=== PATIENT | female | born 1985 | race Two or more races ===

== ENCOUNTER 2025-02-21 09:33 | Inpatient (IN) | payer MEDICAID, OTHER ==
[2025-02-20 20:10] VITALS: PULSE 98
[~2025-02-21] VITALS: Ht 160 cm; Wt 92.8 kg
[2025-02-21] VITALS (8 sets, daily range): BP systolic 116–131; BP diastolic 76–84; PULSE 75–98; RESP 14–19; TEMP 97–98.4; O2SAT 95–100
[2025-02-21 10:18] LABS: Hemoglobin 11.9 g/dL (12.2-16.2); Nucleated Red Blood Cells % 0.0 %
--- NOTE | 2025-02-21 10:18 | ED.PDOC ---
HPI Comments 39 y.o female with PMHx of PE x 2 (on Eliquis), CO, and valley fever, presents to the ED via EMS for a chief complaint of substernal chest pain associated with SOB. Patient reports pain initially presented 2-3 months ago, had been intermittent but worsened today with new onset of dyspnea. Patient reports pain has been constant today, sharp, and rating a 7/10 on the pain scale with no alleviating factors. She denies any fever, chills, nausea, vomiting, or abdominal pain. Chief Complaint: Chest Pain Time Seen by MD: 09:40 Reviewed Notes: Nurses Notes, Director Of Search Engine Marketing Notes, Medications, Allergies Allergies: Coded Allergies: NO KNOWN ALLERGIES (Unverified , 02/21/25) Information Source: Patient, Emergency Med Personnel Mode of Arrival: EMS Severity: Moderate Timing: Months Duration: Intermittent Prehospital treatment: 12 Lead EKG, ASA, Emergency Medicine Physician Assistant Location: Substernal Radiation: No Radiation Quality: Sharp Onset: At Rest Cardiac Risk Factors: Other PE Risk Factors: None History of: Similar pain in past, CO Modifying Factors: Nothing Associated Signs and Symptoms: SOB Past Medical History PAST MEDICAL HISTORY: CO, PE (2) Past Medical History (Other): Valley fever Surgical History: Cholecystectomy 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: No Pertinent 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 Family History Family History: Reviewed,noncontributory to illness Social History Smoker: Non-Smoker Alcohol: Denies ETOH Use Drugs: Denies Drug Use Lives In: Home Constitutional: denies: chills, diaphoresis, fatigue, fever, malaise, sweats, weakness, others EENTM: denies: blurred vision, double vision, ear bleeding, ear discharge, ear drainage, ear pain, ear ringing, eye pain, eye redness, hearing loss, mouth pain, mouth swelling, nasal discharge, nose bleeding, nose congestion, nose pain, photophobia, tearing, throat pain, throat swelling, voice changes, others Respiratory: reports: shortness of breath, SOB with excertion; denies: cough, hemoptysis, orthopnea, SOB at rest, stridor, wheezing, others Cardiovascular: reports: chest pain, Dyspnea on exertion; denies: dizzy spells, diaphoresis, edema, irregular heart beat, left arm pain, lightheadedness, palpitations, PND, syncope, others Gastrointestinal: denies: abdomen distended, abdominal pain, blood streaked bowels, constipated, diarrhea, dysphagia, difficulty swallowing, hematemesis, melena, nausea, poor appetite, poor fluid intake, rectal bleeding, rectal pain, vomiting, others Genitourinary: denies: abnormal vagina bleeding, burning, dyspareunia, dysuria, flank pain, frequency, hematuria, incontinence, pain, , vagina discharge, urgency, others Neurological: denies: dizziness, fainting, headache, left sided numbness, left sided weakness, numbness, paresthesia, pre-existing deficit, right sided numbness, right sided weakness, seizure, speech problems, tingling, tremors, weakness, others Musculoskeletal: denies: back pain, gout, joint pain, joint swelling, muscle pain, muscle stiffness, neck pain, others Integumetry: denies: bruises, change in color, change in hair/nails, dryness, laceration, lesions, lumps, rash, wounds, others Allergic/Immunocompromised: denies: Difficulty Healing, Frequent Infections, Hives, Itching, others Hematologic/Lymphatic: denies: anemia, blood clots, easy bleeding, easy bruising, swollen glands, others Endocrine: denies: excessive hunger, excessive sweating, excessive thirst, excessive urination, flushing, intolerance to cold, intolerance to heat, unexplained weight gain, unexplained weight loss, others Psychiatric: denies: anxiety, bipolar disorder, depression, hopeless, panic disorder, schizophrenia, sleepless, suicidal, others All Other Systems: Reviewed and Negative Physical Exam General Appearance: Moderate Distress HEENT: Normal ENT Inspection, Pharynx Normal, TMs Normal Neck: Full Range of Motion, Non-Tender, Normal, Normal Inspection Respiratory: Chest Non-Tender, Lungs Clear, No Accessory Muscle Use, No Respiratory Distress, Normal Breath Sounds Cardiovascular: No Edema, No JVD, No Murmur, No Gallop, Normal Peripheral Pulses, Regular Rate/Rhythm Breast Exam: Deferred Gastrointestinal: No Organomegaly, Non Tender, No Pulsatile Mass, Normal Bowel Sounds, Soft Genitalia: Deferred Pelvic: Deferred Rectal: Deferred Extremities: No calf tenderness, Normal capillary refill, Normal inspection, Normal range of motion, Non-tender, No pedal edema Musculoskeletal : Apperance: Normal Neurologic: Alert, health care specialist II-XII nml as Tested, No Motor Deficits, Normal Affect, Normal Mood, No Sensory Deficits Cerebellar Function: NOT DONE Reflexes: NOT DONE Skin: Dry, Normal Color, Warm Peripheral Pulses: 3+ Radial (R), 3+ Radial (L) Lymphatic: No Adenopathy EKG EKG : Pulse Rate (adult): 92 Cardiac Rhythm: NSR Was a procedure done? Was a procedure done?: No CP Differential Dx Differential Diagnosis: A-fib, A-Flutter, Angina, Anxiety / Panic Attack, Atrial Dysrhythmia, Electrolyte Disorder, N/A Differential Diagnosis: Angina, Chest Wall Pain, Cholelithiasis, Costochondritis, Myocardial Infarction, Pericarditis X-Ray, Labs, Meds, VS Vital Signs Date Time Temp Pulse Resp B/P (MAP) Pulse Ox O2 Delivery O2 Flow Rate FiO2 02/21/25 10:31 87 02/21/25 10:18 92 02/21/25 09:40 98.1 99 18 127/86 100 98.1 02/21/25 09:36 92 Lab Test 02/21/25 10:59 02/21/25 10:39 02/21/25 09:50 Range/Units Troponin I High Sensitivity Pending 12 </=34 ng/L Urine Color Yellow Yellow Urine Clarity Turbid H Clear Urine pH 6.5 5.0-9.0 Urine Specific [place] 1.024 1.001-1.035 Urine Protein Trace H Negative Urine Ketones Trace Negative Urine Blood Negative Negative /uL Urine Nitrite Negative Negative Urine Bilirubin Negative Negative Urine Urobilinogen 2 H Negative mg/dL Urine Leukocyte Esterase Negative Negative /uL Urine RBC 6 0 - 4 /hpf Urine Microscopic WBC 14 H 0-5 /HPF Urine Squamous Epithelial Cells Mod <5 /hpf Urine Bacteria None seen None Seen /hpf Urine Mucus Few None Seen Urine Glucose Normal Normal mg/dL White Blood Count 10.1 4.4-10.8 10^3/uL Red Blood Count 5.97 H 4.0-5.20 10^6/uL Hemoglobin 11.9 L 12.2-16.2 g/dL Hematocrit 38.0 36.0-46.0 % Mean Corpuscular Volume 63.6 L 80.0-100.0 fL Mean Corpuscular Hemoglobin 19.9 L 28.0-32.0 pg Mean Corpuscular Hemoglobin Concent 31.4 L 32.0-36.0 g/dL Red Cell Distribution Width 18.4 H 11.8-14.3 % Platelet Count 361 140-450 10^3/uL Mean Platelet Volume 8.5 6.9-10.8 fL Neutrophils (%) (Auto) 82.3 H 37.0-80.0 % Lymphocytes (%) (Auto) 13.4 10.0-50.0 % Monocytes (%) (Auto) 3.5 0.0-12.0 % Eosinophils (%) (Auto) 0.4 0.0-7.0 % Basophils (%) (Auto) 0.4 0.0-2.0 % Neutrophils # (Auto) 8.3 1.6-8.6 10 ^3/uL Lymphocytes # (Auto) 1.4 0.4-5.4 10 ^3/uL Monocytes # (Auto) 0.4 0-1.3 10 ^3/uL Eosinophils # (Auto) 0 0-0.8 10 ^3/uL Basophils # (Auto) 0 0-0.2 10 ^3/uL Nucleated Red Blood Cells 0.0 % D-Dimer, Quantitative 3.42 H 0.0-0.49 mg/L FEU Sodium Level 140 136-145 mmol/L Potassium Level 3.3 L 3.5-5.1 mmol/L Chloride Level 105 98-107 mmol/L Carbon Dioxide Level 23 20-31 mmol/L Anion Gap 12 5-15 Blood Urea Nitrogen 16 9-23 mg/dL Creatinine 1.18 H 0.550-1.02 mg/dL Glomerular Filtration Rate Calc 60 >90 mL/min BUN/Creatinine Ratio 13.6 10.0-20.0 Serum Glucose 95 74-106 mg/dL Calcium Level 10.1 8.7-10.4 mg/dL Patient alert. Came in because of chest pain. History of PE. She is on Eliquis. WBC within normal limits. D-dimer elevated. Potassium is low. Was given potassium. EKG reviewed does not show any acute changes. Explained to the patient. Continue to monitor. Time of 1ST Reevaluation: 10:14 Reevaluation 1ST: Unchanged Patient Education/Counseling: Diagnosis, Treatment, Prognosis Family Education/Counseling: No Family Present SEPSIS Sepsis Screen Date sepsis recognized/suspect: Feb 21, 2025 Time Sepsis recognized/suspect: 945 Recent Procedure: No On Antibiotic Therapy: No Respiratory Rate >20: No Heart Rate >90: No Temp<36 C (96.8 F) or >38.3 C: No SBP <90 or MAP <65 mmHG: No New Acute Mental Status Change: No Is the patient on CPAP, BIPAP,: No Physician Orders Electrocardigram (02/21/25 10:39) Electrocardigram (02/21/25 12:39) Troponin-I Hs (02/21/25 10:39) Troponin-I Hs (02/21/25 12:39) Chest Portable (02/21/25 09:58) Vital Signs Date Time Temp Pulse Resp B/P (MAP) Pulse Ox O2 Delivery O2 Flow Rate FiO2 02/21/25 10:31 87 02/21/25 10:18 92 02/21/25 09:40 98.1 99 18 127/86 100 98.1 02/21/25 09:36 92 Laboratory Tests Test 02/21/25 09:50 White Blood Count 10.1 10^3/uL (4.4-10.8) Departure 1 Departure Time of Disposition: 11:17 Impression: Primary Impression: Chest pain of unknown etiology Disposition: ADMITTED INPATIENT Admit to: Med Surg Condition: Guarded Critical Care Note Critical Care Time?: Yes (90 min-critical care time only) Stability Stability form required: No Heart Score Heart Score: Heart Score Response (Comments) Value History Moderate Suspicious 1 EKG Normal 0 Age <45 0 Risk Factors >3 or Hx ASHD 2 Troponin Normal limit 0 Total 3 I personally scribed for ROBBI GILLETTE MD ([email or web address]) on 02/21/25 at 10:18. Electronically submitted by Rachna Purcell ([facility]). ROBBI GILLETTE MD Feb 21, 2025 10:18
[2025-02-21 10:20] LABS: Hematocrit 38.0 % (36.0-46.0); Mean Corpuscular Hemoglobin 19.9 pg (28.0-32.0); Mean Corpuscular Volume 63.6 fL (80.0-100.0)
--- NOTE | 2025-02-21 10:26 | ECG ---
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
[2025-02-21 10:28] LABS: Chloride 105 mmol/L (98-107); Sodium 140 mmol/L (136-145)
[2025-02-21 10:29] LABS: Anion Gap 12 (5-15); Calcium 10.1 mg/dL (8.7-10.4); Carbon Dioxide 23 mmol/L (20-31); Potassium 3.3 mmol/L (3.5-5.1)
[2025-02-21 10:34] LABS: BUN/Creatinine Ratio 13.6 (10.0-20.0); Blood Urea Nitrogen 16 mg/dL (9-23); Glucose 95 mg/dL (74-106)
--- NOTE | 2025-02-21 10:41 | DVH ---
CHEST RADIOGRAPH Indication: sob Technique: Single frontal view of the chest was obtained COMPARISON: None FINDINGS: Lines and Tubes: None Lungs: Clear Pleura: No effusion. No pneumothorax. Cardiomediastinal contours: Unremarkable Bones: Unremarkable IMPRESSION: No acute disease.
[2025-02-21 10:50] LABS: Urine Protein, UAD TRACE (Negative)
--- NOTE | 2025-02-21 13:04 | DVHHP2 ---
History of Present Illness Reason for Visit: Chest pain with shortness of breath History of Present Illness Isadora Wagner is a 39-year-old female with past medical history of PE on Eliquis, CA, valley fever, and cholecystectomy who presents to the ED with chest pain and shortness of breath. Patient reports that the pain initially started 2-3 months ago and has been intermittent but now worsened today. Patient reports that the pain is 8/10 stabbing like and intermittent. Patient also reports that the pain is relieved with aspirin. Patient also reports that she has been noncompliant with her Eliquis. She reported that she does not want to take medications for the rest of her life. She also reports that she had valley fever for the entire year and was treated at [facility]. Patient also endorsed that she has a pulmonary referral but she never went to see a licensed massage practitioner or her primary. Patient also endorses that she smokes 1 pack of cigarettes per day and quit using fentanyl and methamphetamine, is now on Suboxone. Patient also reports that she was prescribed Lasix, Eliquis, albuterol, and Symbicort. Patient denies any recent trauma or injury, recent sick contacts, recent travels, recent ingestion of spoiled food, fever, chills, lightheadedness, weakness, dizziness, abdominal pain nausea, vomiting, diarrhea, or urinary symptoms. Cardiovascular: CA Pulmonary: Pulmonary embolus Past Medical History Valley fever Past Surgical History: Cholecystectomy Family History: Cancer, DM, Other (Mom with diabetes, breast cancer, and ovarian cancer. Dad with heart disease. Brother from CHF.) Smoke: 1 pack per day ALCOHOL: none Drugs: Other Lives: with Family Domestic Violence: Neg Review of Systems Respiratory: Shortness of breath Cardiovascular: Chest Pain Allergies: Coded Allergies: NO KNOWN ALLERGIES (Unverified , 02/21/25) Exam Vital Signs Vital Signs Date Time Temp Pulse Resp B/P (MAP) Pulse Ox O2 Delivery O2 Flow Rate FiO2 02/21/25 11:21 98.8 104 18 148/96 (113) 99 98.8 General Appearance: Alert, Oriented X3, Cooperative, No acute distress HEENT: Atraumatic, PERRLA, EOMI, Mucous membr. moist/pink Respiratory: Clear to auscultation, Normal air movement Cardiovascular: Regular rate, Normal S1, Normal S2, No murmurs Abdominal: Normal bowel sounds, Soft Extremities: Normal pulses Neuro: Normal gait, Normal speech, Strength at 5/5 X4 ext, Normal tone, Sensation intact Psych/Mental Status: Mental status NL, Mood NL Labs/Xrays Labs Test 02/21/25 10:59 02/21/25 10:39 02/21/25 09:50 Range/Units Troponin I High Sensitivity 15 </=34 ng/L Urine Color Yellow Yellow Urine Clarity Turbid H Clear Urine pH 6.5 5.0-9.0 Urine Specific [place] 1.024 1.001-1.035 Urine Protein Trace H Negative Urine Ketones Trace Negative Urine Blood Negative Negative /uL Urine Nitrite Negative Negative Urine Bilirubin Negative Negative Urine Urobilinogen 2 H Negative mg/dL Urine Leukocyte Esterase Negative Negative /uL Urine RBC 6 0 - 4 /hpf Urine Microscopic WBC 14 H 0-5 /HPF Urine Squamous Epithelial Cells Mod <5 /hpf Urine Bacteria None seen None Seen /hpf Urine Mucus Few None Seen Urine Glucose Normal Normal mg/dL White Blood Count 10.1 4.4-10.8 10^3/uL Red Blood Count 5.97 H 4.0-5.20 10^6/uL Hemoglobin 11.9 L 12.2-16.2 g/dL Hematocrit 38.0 36.0-46.0 % Mean Corpuscular Volume 63.6 L 80.0-100.0 fL Mean Corpuscular Hemoglobin 19.9 L 28.0-32.0 pg Mean Corpuscular Hemoglobin Concent 31.4 L 32.0-36.0 g/dL Red Cell Distribution Width 18.4 H 11.8-14.3 % Platelet Count 361 140-450 10^3/uL Mean Platelet Volume 8.5 6.9-10.8 fL Neutrophils (%) (Auto) 82.3 H 37.0-80.0 % Lymphocytes (%) (Auto) 13.4 10.0-50.0 % Monocytes (%) (Auto) 3.5 0.0-12.0 % Eosinophils (%) (Auto) 0.4 0.0-7.0 % Basophils (%) (Auto) 0.4 0.0-2.0 % Neutrophils # (Auto) 8.3 1.6-8.6 10 ^3/uL Lymphocytes # (Auto) 1.4 0.4-5.4 10 ^3/uL Monocytes # (Auto) 0.4 0-1.3 10 ^3/uL Eosinophils # (Auto) 0 0-0.8 10 ^3/uL Basophils # (Auto) 0 0-0.2 10 ^3/uL Nucleated Red Blood Cells 0.0 % D-Dimer, Quantitative 3.42 H 0.0-0.49 mg/L FEU Sodium Level 140 136-145 mmol/L Potassium Level 3.3 L 3.5-5.1 mmol/L Chloride Level 105 98-107 mmol/L Carbon Dioxide Level 23 20-31 mmol/L Anion Gap 12 5-15 Blood Urea Nitrogen 16 9-23 mg/dL Creatinine 1.18 H 0.550-1.02 mg/dL Glomerular Filtration Rate Calc 60 >90 mL/min BUN/Creatinine Ratio 13.6 10.0-20.0 Serum Glucose 95 74-106 mg/dL Calcium Level 10.1 8.7-10.4 mg/dL CHEST RADIOGRAPH Indication: sob Technique: Single frontal view of the chest was obtained COMPARISON: None FINDINGS: Lines and Tubes: None Lungs: Clear Pleura: No effusion. No pneumothorax. Cardiomediastinal contours: Unremarkable Bones: Unremarkable IMPRESSION: No acute disease. SEPSIS Sepsis Screen Date sepsis recognized/suspect: Feb 21, 2025 Time Sepsis recognized/suspect: 945 Recent Procedure: No On Antibiotic Therapy: No Respiratory Rate >20: No Heart Rate >90: No Temp<36 C (96.8 F) or >38.3 C: No SBP <90 or MAP <65 mmHG: No New Acute Mental Status Change: No Is the patient on CPAP, BIPAP,: No Physician Orders Electrocardigram (02/21/25 10:39) Electrocardigram (02/21/25 12:39) Troponin-I Hs (02/21/25 12:39) Chest Portable (02/21/25 09:58) Ct Angio Chest Contrast (02/21/25 11:17) Cardiac Diet-2gna,Lofat,Lochol (02/21/25 Lunch) Vital Signs Date Time Temp Pulse Resp B/P (MAP) Pulse Ox O2 Delivery O2 Flow Rate FiO2 02/21/25 11:21 98.8 104 18 148/96 (113) 99 98.8 02/21/25 10:31 87 02/21/25 10:18 92 02/21/25 09:40 98.1 99 18 127/86 100 98.1 02/21/25 09:36 92 Laboratory Tests Test 02/21/25 09:50 White Blood Count 10.1 10^3/uL (4.4-10.8) Medications Medications Dose Ordered Sig/[place] Route Start Time Stop Time Status Last Admin Dose Admin Aspirin 325 mg ONCE ONCE PO 02/21/25 11:30 02/21/25 11:31 DC 02/21/25 12:20 325 MG Assessment/Plan Assessment/Plan Assessment Chest pain Elevated D-dimer rule out PE Hypokalemia Tobacco use Meth use Fentanyl use Microcytic anemia RADHA likely prerenal History of PE on Eliquis History of CA History of valley fever History of cholecystectomy Medication noncompliance Plan Admit to tele Antiemetics Pain management Replete lytes Aspirin + statin CTA chest ordered by ED UA UDS ACS workup D-dimer noted Chest x-ray noted Troponin noted negative x2 Duo nebs Diuretics BNP Budesonide EKG Diet Home medications reconciled RN to reconcile other medications DVT prophylaxis-therapeutic Lovenox PUD prophylaxis-not indicated no history of GERD or GI bleed Discussed plan of care with patient and nurse Counseled patient on medication adherence Counseled patient on cessation of polysubstance use and tobacco use [id number] Behavior change smoking greater than 10 minutes about use of other options also gave option of nicotine patch [id number] Preventive counseling healthy eating habits, physical activity, and regular checkups Plan discussed with: Patient Date of Service: Feb 21, 2025 Billing Provider: MILTON CAMACHO Common Visit Codes: [id number] INP/OBS CARE (HIGH) Secondary Visit Codes: [id number] COUNSELING IND, [id number] CHNG SMOKING >10MIN MILTON CAMACHO Feb 21, 2025 13:04
--- NOTE | 2025-02-21 13:36 | ECG ---
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
--- NOTE | 2025-02-21 13:36 | ECG ---
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
[2025-02-21] MEDS: POTASSIUM CHL 20 Meq TABLET PO ONE (13:58)
[2025-02-21] MEDS ORDERED: ONDANSETRON HCL 4 MG/2 ML VIAL IV PRN (14:30)
[2025-02-21] MEDS ORDERED: ACETAMINOPHEN 325 MG TAB PO PRN (14:30)
[2025-02-21] MEDS ORDERED: NITROGLYCERIN 0.4 MG SL TAB SL PRN ×2 (14:30)
[2025-02-21] MEDS ORDERED: MORPHINE SULFATE 4 MG/ML SYR/VIAL IV PRN (14:30)
[2025-02-21] MEDS ORDERED: MORPHINE SULFATE INJ 2 MG/ml SYRG IV PRN (14:30)
[2025-02-21] MEDS ORDERED: IOHEXOL 350 MG/ML 100ML IJ ONE (16:15)
--- NOTE | 2025-02-21 17:05 | DVH ---
Indication: pe Technique: CT axial images of the abdomen and pelvis are obtained with intravenous contrast. Coronal and sagittal reformats were obtained. Radiation Dose Information: CTDI volume is 17.76 mGy. Dose-length product is 487 mGy*cm Comparison: None FINDINGS: No large defect within the main left right pulmonary arteries. Segmental and subsegmental branches doll boptimally opacified, no large defects identified. The trachea is patent. No pneumothorax. No pulmonary airspace consolidation. No pleural effusion. Heart normal in size. No supraclavicular or axillary lymphadenopathy. Moderate size hiatal hernia. Right hepatic cystic lesion measuring 3.4 cm. No aggressive osseous process postsurgical changes of the right shoulder/glenoid. [id number] th oracic degenerative disc disease. IMPRESSION: No evidence for large pulmonary embolism. Moderate size hiatal hernia. Right hepatic lobe cystic lesion measuring 3.4 cm. Recommend abdominal ultrasound to further charact erize to exclude any complex cystic lesion/mass Other findings as described.
[2025-02-21 19:12] LABS: Opiate Scree,Urine Neg (NEGATIVE)
[2025-02-21 19:13] LABS: Cannabinoid Screen, Urine Neg (NEGATIVE)
[2025-02-21 19:21] LABS: Amphetamine Screen, Urine Pos (NEGATIVE); Barbiturate Scree,Urine Neg (NEGATIVE); Benzodiazephine Screen, Urine Neg (NEGATIVE); Phencyclidine Screen, Urine Neg (NEGATIVE)
--- NOTE | 2025-02-21 19:44 | DVH ---
ULTRASOUND ABDOMEN, LIMITED RIGHT UPPER QUADRANT: REASON FOR EXAM: Liver lesion seen on CT TECHNIQUE: Real-time sector scans in the transverse and longitudinal planes were obtained through th e right upper quadrant of the abdomen. FINDINGS: The liver is borderline enlarged at 17.3 cm in length. There is coarsened liver echotextu re. There is hepatopetal flow in the portal vein. There is a clover shaped simple anechoic cyst in th e posterior right lobe of the liver measuring 3.8 x 3.1 x 3.2 cm. There is no intrahepatic nor extra hepatic biliary ductal dilatation. The common bile duct measures 6 mm. The gallbladder is absent. The pancreas is obscured by bowel gas. The right kidney measures 10.8 cm. No hydronephrosis or nephrolithiasis is identified. There is no evidence of right renal mass or cyst. The visualized portions of the abdominal aorta demonstrate no evidence of aneurysmal dilatation. The visualized inferior vena cava is unremarkable. There is no free fluid identified in the right upper quadrant. IMPRESSION: [place] shaped simple cyst in the posterior right lobe of the liver.
[2025-02-21 19:46] LABS: Cocaine Screen, Urine Neg (NEGATIVE)
[2025-02-21] MEDS: ATORVASTATIN 20 MG TAB PO SCH (21:34)
[2025-02-21] MEDS ORDERED: ENOXAPARIN SOD 100 MG/1 ML SYRINGE SC SCH (22:00)
[2025-02-21] MEDS: BUDESONIDE (INHALATION) 0.5 MG/2 ML NEB NEB SCH (22:11)
[2025-02-22] VITALS (14 sets, daily range): BP systolic 110–143; BP diastolic 74–99; PULSE 65–83; RESP 16–19; TEMP 96.8–98.2; O2SAT 91–100
[2025-02-22 06:30] LABS: Nucleated Red Blood Cells % 0.0 %
[2025-02-22 06:32] LABS: Hematocrit 33.1 % (36.0-46.0); Hemoglobin 10.3 g/dL (12.2-16.2); Mean Corpuscular Hemoglobin 19.7 pg (28.0-32.0); Mean Corpuscular Volume 63.5 fL (80.0-100.0)
[2025-02-22 06:40] LABS: Anion Gap 11 (5-15); Carbon Dioxide 24 mmol/L (20-31); Chloride 101 mmol/L (98-107); Potassium 4.1 mmol/L (3.5-5.1); Sodium 136 mmol/L (136-145)
[2025-02-22 06:41] LABS: Calcium 9.3 mg/dL (8.7-10.4)
[2025-02-22 06:46] LABS: BUN/Creatinine Ratio 22.5 (10.0-20.0); Blood Urea Nitrogen 18 mg/dL (9-23); Glucose 100 mg/dL (74-106); Triglycerides 71 mg/dL (< 150)
[2025-02-22 06:47] LABS: Magnesium 1.9 mg/dL (1.6-2.6)
[2025-02-22 06:48] LABS: Cholesterol 138 mg/dL (< 200); HDL Cholesterol 57 mg/dL (40-59)
[2025-02-22] MEDS: ENOXAPARIN SOD 40 MG/0.4 ML SYRINGE SC SCH (10:16)
[2025-02-22] MEDS: FUROSEMIDE 40 MG/4 ML VIAL IV SCH (10:17)
--- NOTE | 2025-02-22 17:56 | DVHPN2 ---
Subjective BETTER Reviewed: Care Plan, H&P, Labs, Medications, Previous Orders, Radiology Changes from previous H/P or p: No Changes Objective Vitals Vital Signs Date Time Temp Pulse Resp B/P (MAP) Pulse Ox O2 Delivery O2 Flow Rate FiO2 02/22/25 17:00 98.2 69 18 143/99 (114) 93 98.2 02/22/25 10:38 Room Air* 0 21 Intake/Output Intake and Output 02/22/25 07:00 Intake Total 1100 ml Balance 1100 ml Intake Oral 1100 ml # Voids 6 General Appearance: Alert, Oriented X3, Cooperative, No acute distress HEENT: Atraumatic Lungs: Clear to auscultation Cardiovascular: Regular rate Abdomen: Normal bowel sounds, Soft, No tenderness Extremities: No edema Medications Current Medications Medications Dose Ordered Sig/[place] Route Start Time Stop Time Status Last Admin Dose Admin Aspirin 81 mg DAILY PO 02/22/25 10:00 02/22/25 10:17 81 MG Atorvastatin Calcium 40 mg HS PO 02/21/25 22:00 02/21/25 21:34 40 MG Acetaminophen 650 mg Q6HP PRN PO 02/21/25 14:30 Ondansetron HCl 4 mg Q4HP PRN IV 02/21/25 14:30 Nitroglycerin 0.4 mg Q5MINP PRN SL 02/21/25 14:30 Morphine Sulfate 2 mg Q30M PRN IV 02/21/25 14:30 Furosemide 40 mg DAILY IV 02/22/25 10:00 02/22/25 10:17 40 MG Albuterol 2.5 mg Q4HPRN PRN NEB 02/21/25 15:00 Ipratropium [place] 0.5 mg Q4HPRN PRN NEB 02/21/25 15:00 Budesonide 0.5 mg BID NEB 02/21/25 22:00 02/22/25 10:33 0.5 MG Enoxaparin Sodium 40 mg DAILY SC 02/22/25 10:00 02/22/25 10:16 40 MG Ceftriaxone Sodium 50 ml @ 100 mls/hr DAILY@09 IV 02/23/25 09:00 Laboratory Results Laboratory Tests 02/22/25 05:39 Chemistry Test 02/22/25 05:39 Calcium Level 9.3 mg/dL (8.7-10.4) Magnesium Level 1.9 mg/dL (1.6-2.6) Lipid panel Test 02/22/25 05:39 Cholesterol Level 138 mg/dL (< 200) HDL Cholesterol 57 mg/dL (40-59) Triglycerides Level 71 mg/dL (< 150) Urinalysis Test 02/21/25 10:39 Urine Color Yellow (Yellow) Urine Clarity Turbid (Clear) H Urine pH 6.5 (5.0-9.0) Urine Specific [place] 1.024 (1.001-1.035) Urine Protein Trace (Negative) H Urine Ketones Trace (Negative) Urine Blood Negative /uL (Negative) Urine Nitrite Negative (Negative) Urine Bilirubin Negative (Negative) Urine Urobilinogen 2 mg/dL (Negative) H Urine Leukocyte Esterase Negative /uL (Negative) Urine RBC 6 /hpf (0 - 4) Urine Microscopic WBC 14 /HPF (0-5) H Urine Squamous Epithelial Cells Mod /hpf (<5) Urine Bacteria None seen /hpf (None Seen) Urine Mucus Few (None Seen) Urine Glucose Normal mg/dL (Normal) Assessment/Plan Assessment/Plan Chest pain History of PE History of valley fever UTI Anemia Hiatal hernia Methamphetamine use Fentanyl use Liver cysts Plan: Antibiotic for UTI. Urine culture. Chest CT negative for PE. Cardiology consultation. Further plan per orders Plan discussed with: Patient My Orders Orders - CORRIE RAZA MD Procedure Category Date Status Time Urine Bacterial LARISSA 02/22/25 In Process Culture 12:09 Ceftriaxone 1gm/50ml PHA 02/23/25 In Process (Rocephin) 09:00 Date of Service: Feb 22, 2025 Billing Provider: CORRIE RAZA MD Common Visit Codes: [id number] INP/OBS CARE(HIGH) CORRIE RAZA MD Feb 22, 2025 17:55
[2025-02-22] MEDS: ALBUTEROL SULF 2.5 MG/0.5ML(0.5%) NEB SOLN NEB PRN (18:15)
[2025-02-22] MEDS: IPRATROPIUM BROM 0.5 MG/2.5ML INH SOL NEB PRN (18:15)
[2025-02-23] VITALS (11 sets, daily range): BP systolic 105–117; BP diastolic 57–75; PULSE 59–89; RESP 16–19; TEMP 98–98.2; O2SAT 95–100
--- NOTE | 2025-02-23 09:43 | DVHSR ---
APPROVED REPORT EXAM: Two-dimensional and M-mode echocardiogram with Doppler and color Doppler. Blood Pressure: 122/78 mmHg INDICATION Chest Pain RISK FACTORS Height: 5' 3", Weight: 189 DIMENSIONS LVDd4.8 (3.8-5.7cm)LA (2D)3.7 (1.9-4.0cm)Aortic Root3.2 (2.0-3.7cm) LVDs3.3 (2.5-4.0cm)LA (MM) (1.9-4.0cm)Aortic Cusp Exc1.5 (1.5-2.0cm) EF (%) 58.0 (55-70%)Rt. Atrium4.1 (1.9-4.0cm)Asc. Aorta cm IVSd0.9 (0.7-1.1cm)RV (D) (1.8-2.4cm) PWd1.0 (0.7-1.1cm) Mitral Valve MitralMitral Stenosis E wave0.60m/sMV Mean GR.mmHg A wave0.70m/sMV Peak GR.mmHg E/A ratio0.92D MVAcm2 Aortic Valve Aortic ValveAortic Stenosis V10.80m/Judi Mean GR.3mmHg V21.10m/Judi Peak GR.6mmHg LVOT Diameter2.1 (1.8-2.4cm)Doppler AVA2.52cm2 Pulmonic Valve V20.70m/s Tricuspid Valve TR Velocity2.40m/s [id number] Conclusion lvef 55% borderline lvh normal rv function but enlarged borderline no severe valve abnormalities noted
--- NOTE | 2025-02-23 09:51 | DVHINCON2 ---
SUYAPA JACOBSON [facility] 02/23/25 0951: Date Seen: Feb 23, [address] Riley Reason for Consultation Chest pain History of Present Illness A 39-year-old female with a history of pulmonary embolism on Eliquis, asthma, and amphetamine/fentanyl abuse presents to the ED with complaint of intermittent chest pain and shortness of breath. She reports that chest pain sharp in nature began a few days ago, typically occurring with exertion such as walking, and is associated with dyspnea on exertion. She denies syncope, diaphoresis, p alpitations, or other acute symptoms. In the ED, a 12 lead EKG revealed normal sinus rhythm without acute ischemic changes, and serial troponins were negative. Past Medical History As stated in HPI Past Surgical History Cholecystectomy Family History: Cardiovascular disease G8 FATHER Depression G8 MOTHER FH: CAD (coronary artery disease) G8 FATHER FH: breast cancer G8 MOTHER FH: ovarian cancer G8 MOTHER FH: schizophrenia G8 FATHER Hypoglycemia G8 MOTHER Family History Reviewed, non-contributory to the management of this case. Social History As stated in HPI Allergies: Coded Allergies: NO KNOWN ALLERGIES (Unverified , 02/21/25) Current Medications Current Medications Medications (Trade) Dose Ordered Sig/Eugene Route PRN Reason Start Time Stop Time Status Last Admin Aspirin 81 mg DAILY PO 02/22/25 10:00 02/23/25 09:14 Furosemide (Lasix Injection) 40 mg DAILY IV 02/22/25 10:00 02/22/25 10:17 Enoxaparin Sodium (Lovenox) 40 mg DAILY SC 02/22/25 10:00 02/23/25 09:14 Ceftriaxone Sodium 50 ml @ 100 mls/hr DAILY@09 IV 02/23/25 09:00 02/23/25 09:14 Review of Systems Constitutional: No symptom reported Ears, Nose, & Throat: No symptom reported Eyes: No symptom reported Neurological: No symptoms reported Pulmonary/Respiratory: No symptom reported Cardiovascular: Chest pain Gastrointestinal: No symptom reported Genitourinary: No symptom reported Musculoskeletal: No symptom reported Skin: No symptom reported Psychiatric: No symptom reported Endocrine: No symptom reported Hemotologic/Lymphatic: No symptom reported Vital Signs Vital Signs Date Time Temp Pulse Resp B/P (MAP) Pulse Ox O2 Delivery O2 Flow Rate FiO2 02/23/25 09:00 98.1 78 16 105/57 (73) 95 98.1 02/22/25 20:00 Room Air* 0 21 Physical Exam INITIAL VITAL SIGNS: Reviewed by me GENERAL: Alert and interactive. No acute distress. HEAD: Head is normocephalic and atraumatic. EYES: EOMI, PERRL. No scleral icterus. No conjunctival injection. ENT: Moist mucous membranes. NECK: Supple, No masses, Full range of motion. RESPIRATORY: No tachypnea. Clear breath sounds bilaterally. No wheezing, rales, rhonchi. CV: Regular rate and rhythm. Dyspnea on exertion. No edema. GI/: Active bowel sounds, soft, nondistended, nontender. No guarding. No rebound. No masses. No CVA tenderness. INTEGUMENTARY: Warm and dry. No obvious rashes. NEUROLOGIC: Alert and oriented. Face is symmetric. Speech is normal. Moves all extremities equally. Labs/Diagnostic Data Labs Test 02/22/25 05:39 02/21/25 10:39 02/21/25 09:50 Range/Units White Blood Count 7.6 4.4-10.8 10^3/uL Red Blood Count 5.21 H 4.0-5.20 10^6/uL Hemoglobin 10.3 L 12.2-16.2 g/dL Hematocrit 33.1 #L 36.0-46.0 % Mean Corpuscular Volume 63.5 L 80.0-100.0 fL Mean Corpuscular Hemoglobin 19.7 L 28.0-32.0 pg Mean Corpuscular Hemoglobin Concent 31.0 L 32.0-36.0 g/dL Red Cell Distribution Width 18.4 H 11.8-14.3 % Platelet Count 265 140-450 10^3/uL Mean Platelet Volume 8.5 6.9-10.8 fL Neutrophils (%) (Auto) 61.0 37.0-80.0 % Lymphocytes (%) (Auto) 26.3 10.0-50.0 % Monocytes (%) (Auto) 7.1 0.0-12.0 % Eosinophils (%) (Auto) 4.9 0.0-7.0 % Basophils (%) (Auto) 0.7 0.0-2.0 % Neutrophils # (Auto) 4.6 1.6-8.6 10 ^3/uL Lymphocytes # (Auto) 2.0 0.4-5.4 10 ^3/uL Monocytes # (Auto) 0.5 0-1.3 10 ^3/uL Eosinophils # (Auto) 0.4 0-0.8 10 ^3/uL Basophils # (Auto) 0.1 0-0.2 10 ^3/uL Nucleated Red Blood Cells 0.0 % Sodium Level 136 136-145 mmol/L Potassium Level 4.1 3.5-5.1 mmol/L Chloride Level 101 98-107 mmol/L Carbon Dioxide Level 24 20-31 mmol/L Anion Gap 11 5-15 Blood Urea Nitrogen 18 9-23 mg/dL Creatinine 0.80 # 0.550-1.02 mg/dL Glomerular Filtration Rate Calc 95 >90 mL/min BUN/Creatinine Ratio 22.5 H 10.0-20.0 Serum Glucose 100 74-106 mg/dL Calcium Level 9.3 8.7-10.4 mg/dL Magnesium Level 1.9 1.6-2.6 mg/dL Troponin I High Sensitivity 5 </=34 ng/L Triglycerides Level 71 < 150 mg/dL Cholesterol Level 138 < 200 mg/dL LDL Cholesterol 72 < 100 mg/dL HDL Cholesterol 57 40-59 mg/dL Urine Color Yellow Yellow Urine Clarity Turbid H Clear Urine pH 6.5 5.0-9.0 Urine Specific [place] 1.024 1.001-1.035 Urine Protein Trace H Negative Urine Ketones Trace Negative Urine Blood Negative Negative /uL Urine Nitrite Negative Negative Urine Bilirubin Negative Negative Urine Urobilinogen 2 H Negative mg/dL Urine Leukocyte Esterase Negative Negative /uL Urine RBC 6 0 - 4 /hpf Urine Microscopic WBC 14 H 0-5 /HPF Urine Squamous Epithelial Cells Mod <5 /hpf Urine Bacteria None seen None Seen /hpf Urine Mucus Few None Seen Urine Glucose Normal Normal mg/dL Urine Opiates Screen Neg NEGATIVE Urine Fentanyl Screen Pos NEGATIVE Urine Barbiturates Screen Neg NEGATIVE Urine Phencyclidine Screen Neg NEGATIVE Urine Amphetamines Screen Pos NEGATIVE Urine Benzodiazepines Screen Neg NEGATIVE Urine Cocaine Screen Neg NEGATIVE Urine Cannabinoids Screen Neg NEGATIVE D-Dimer, Quantitative 3.42 H 0.0-0.49 mg/L FEU Hemoglobin A1c 5.2 <5.7 % A1C B-Type Natriuretic Peptide 16.50 0-100 pg/mL Thyroid Stimulating Hormone (TSH) 0.57 0.55-4.78 uIU/mL Free Thyroxine (T4) Calculated 1.52 0.89-1.76 ng/dL PROCEDURE(s): CXRP - CHEST PORTABLE REASON: sob ORDER NUMBER(s): [id number], ACCESSION NUMBER(s): [id number] CHEST RADIOGRAPH Indication: sob Technique: Single frontal view of the chest was obtained COMPARISON: None FINDINGS: Lines and Tubes: None Lungs: Clear Pleura: No effusion. No pneumothorax. Cardiomediastinal contours: Unremarkable Bones: Unremarkable IMPRESSION: No acute disease. Assessment Chest pain to rule out CAD ( heart score 3) Dyspnea on exertion Transaminitis hx of PE on Eliquis Amphetamine and fentanyl abuse Asthma Obesity Plan/Recommendation (Dr. Cook ): * Obtain transthoracic echocardiogram and schedule stress test for ischemic evaluation * Continue with Lovenox * Counseled on risks of a stimulant and opiate use contributing to car diopulmonary symptoms * Continue monitoring on telemetry This medical document was created using an electronic medical record system with voice recognition software and computerized dictation system. Although this document has been carefully reviewed, there might still be some phonetic and typographical errors. Occasional wrong-word or ``sound-alike substitutions may have occurred due to the inherent limitations of voice recognition software. These areas are purely typographical due to imperfections of the software programs and do not reflect any compromise in the patient's medical care. Please read the chart carefully and recognize, using context, where these substitutions have occurred. Plan discussed with: Patient Plan discussed with: Patient NYHA Physical activity limitations: Class1(None)absent sob, Date of Service: Feb 23, 2025 Billing Provider: HALEIGH COOK MD Cardiology Common Codes: NOT BILLABLE Cardiology Consultation Codes: [id number] CONSULT <45MIN HALEIGH COOK MD 02/23/25 1305: Family History: Cardiovascular disease G8 FATHER Depression G8 MOTHER FH: CAD (coronary artery disease) G8 FATHER FH: breast cancer G8 MOTHER FH: ovarian cancer G8 MOTHER FH: schizophrenia G8 FATHER Hypoglycemia G8 MOTHER Allergies: Coded Allergies: NO KNOWN ALLERGIES (Unverified , 02/21/25) Plan/Recommendation negative cta active meth abuse negative trops and normal lvef on echo primary servcie requests nuclear scan for 39 F, will proceed needs preg test Plan discussed with: Patient SUYAPA JACOBSON [employer] Feb 23, 2025 09:51 HALEIGH COOK MD Feb 23, 2025 13:05
--- NOTE | 2025-02-23 10:37 | DVH ---
BILATERAL LOWER EXTREMITY VENOUS DUPLEX REASON FOR EXAMINATION: elevated ddimer. Bilateral lower extremity pain and edema. COMPARISON: None TECHNIQUE: Using real-time freeze-frame technique with a high-frequency transducer, multiple longitu dinal and transverse sections were obtained. Simultaneous color flow and spectral Doppler imaging wa s performed. FINDINGS: There is good visualization of the deep venous system with no intraluminal filling defects identified. Normal venous compressibility is seen and there is flow augmentation. Color flow Doppler imaging is unremarkable. There is a mildly prominent lymph node in the left groin with normal fatty hilum measuring approximat james 0.6 cm in short axis. IMPRESSION: NO EVIDENCE OF DEEP VENOUS THROMBOSIS.
[2025-02-23 11:08] LABS: Hemoglobin 11.5 g/dL (12.2-16.2)
[2025-02-23 11:10] LABS: Hematocrit 37.2 % (36.0-46.0); Mean Corpuscular Hemoglobin 20.3 pg (28.0-32.0); Mean Corpuscular Volume 65.3 fL (80.0-100.0); Nucleated Red Blood Cells % 0.3 %
[2025-02-23 11:25] LABS: Albumin 4.2 g/dL (3.2-4.8); Alkaline Phosphatase 113 U/L (46-116); Anion Gap 8 (5-15); BUN/Creatinine Ratio 13.4 (10.0-20.0); Blood Urea Nitrogen 11 mg/dL (9-23); Calcium 9.5 mg/dL (8.7-10.4); Carbon Dioxide 25 mmol/L (20-31); Chloride 102 mmol/L (98-107); Glucose 82 mg/dL (74-106); Potassium 4.7 mmol/L (3.5-5.1); Total Protein 8.1 g/dL (5.7-8.2)
[2025-02-23 11:26] LABS: Alanine Aminotransferase 50 U/L (7-40); Bilirubin, Total 0.3 mg/dL (0.2-1.0); Sodium 135 mmol/L (136-145)
--- NOTE | 2025-02-23 15:58 | DVHPN2 ---
Subjective BETTER Reviewed: Care Plan, H&P, Labs, Medications, Previous Orders, Radiology Changes from previous H/P or p: No Changes Objective Vitals Vital Signs Date Time Temp Pulse Resp B/P (MAP) Pulse Ox O2 Delivery O2 Flow Rate FiO2 02/23/25 10:41 61 16 100 02/23/25 09:00 98.1 105/57 (73) 98.1 02/23/25 08:00 Room Air* 0 21 Intake/Output Intake and Output 02/23/25 07:00 Intake Total 1880 ml Balance 1880 ml Intake Oral 1880 ml # Voids 10 General Appearance: Alert, Oriented X3, Cooperative, No acute distress HEENT: Atraumatic Lungs: Clear to auscultation Cardiovascular: Regular rate Abdomen: Normal bowel sounds, Soft, No tenderness Extremities: No edema Medications Current Medications Medications Dose Ordered Sig/Eugene Route Start Time Stop Time Status Last Admin Dose Admin Aspirin 81 mg DAILY PO 02/22/25 10:00 02/23/25 09:14 81 MG Atorvastatin Calcium 40 mg HS PO 02/21/25 22:00 02/22/25 21:16 40 MG Acetaminophen 650 mg Q6HP PRN PO 02/21/25 14:30 Ondansetron HCl 4 mg Q4HP PRN IV 02/21/25 14:30 Nitroglycerin 0.4 mg Q5MINP PRN SL 02/21/25 14:30 Morphine Sulfate 2 mg Q30M PRN IV 02/21/25 14:30 Furosemide 40 mg DAILY IV 02/22/25 10:00 02/22/25 10:17 40 MG Albuterol 2.5 mg Q4HPRN PRN NEB 02/21/25 15:00 02/22/25 18:15 2.5 MG Ipratropium [place] 0.5 mg Q4HPRN PRN NEB 02/21/25 15:00 02/22/25 18:15 0.5 MG Budesonide 0.5 mg BID NEB 02/21/25 22:00 02/23/25 10:31 0.5 MG Enoxaparin Sodium 40 mg DAILY SC 02/22/25 10:00 02/23/25 09:14 40 MG Ceftriaxone Sodium 50 ml @ 100 mls/hr DAILY@09 IV 02/23/25 09:00 02/23/25 09:14 100 MLS/HR Laboratory Results Laboratory Tests 02/23/25 10:50 Chemistry Test 02/23/25 10:50 Albumin 4.2 g/dL (3.2-4.8) Calcium Level 9.5 mg/dL (8.7-10.4) Total Protein 8.1 g/dL (5.7-8.2) LFT Test 02/23/25 10:50 Alanine Aminotransferase (ALT) 50 U/L (7-40) H Alkaline Phosphatase 113 U/L (46-116) Aspartate Amino Transferase (AST) 58 U/L (13-40) H Total Bilirubin 0.3 mg/dL (0.2-1.0) Urinalysis Test 02/21/25 10:39 Urine Color Yellow (Yellow) Urine Clarity Turbid (Clear) H Urine pH 6.5 (5.0-9.0) Urine Specific [place] 1.024 (1.001-1.035) Urine Protein Trace (Negative) H Urine Ketones Trace (Negative) Urine Blood Negative /uL (Negative) Urine Nitrite Negative (Negative) Urine Bilirubin Negative (Negative) Urine Urobilinogen 2 mg/dL (Negative) H Urine Leukocyte Esterase Negative /uL (Negative) Urine RBC 6 /hpf (0 - 4) Urine Microscopic WBC 14 /HPF (0-5) H Urine Squamous Epithelial Cells Mod /hpf (<5) Urine Bacteria None seen /hpf (None Seen) Urine Mucus Few (None Seen) Urine Glucose Normal mg/dL (Normal) Microbiology Microbiology Date/Time Source Procedure Growth Status 02/21/25 10:13 Voided Urine Urine Culture - Preliminary Resulted Assessment/Plan Assessment/Plan Chest pain History of PE History of valley fever UTI Anemia Hiatal hernia Methamphetamine use Fentanyl use Liver cysts Plan: Continue current plan of care. stress test per cardio. Bilateral lower extremity ultrasound negative for DVT. Plan discussed with: Patient My Orders Orders - CORRIE RAZA MD Procedure Category Date Status Time * Cardiology Consult CONS 02/22/25 Transmitted 17:54 Date of Service: Feb 23, 2025 Billing Provider: CORRIE RAZA MD Common Visit Codes: [id number] INP/OBS CARE(HIGH) CORRIE RAZA MD Feb 23, 2025 15:57
[2025-02-24] VITALS (10 sets, daily range): BP systolic 97–116; BP diastolic 60–83; PULSE 54–76; RESP 14–18; TEMP 97.5–98.3; O2SAT 95–100
[2025-02-24] MEDS: REGADENOSON 0.4 MG/5 ML SYRG IV ONE ×2 (09:40→09:49)
[2025-02-24] MEDS ORDERED: FUROSEMIDE 20 MG/2 ML VIAL IV ONE (11:30)
--- NOTE | 2025-02-24 12:05 | DVHSR ---
APPROVED REPORT Exam: Nuclear Stress Test BMI: 0 Stress Test Details HR Max Heart Rate (APMHR): 179.331556 bpm Target HR (85% APMHR): 152.911985 bpm BP ECG Stress ECG Conclusion no ischemia normal perfusion lvef 47% NM EXAM: Myocardial Perfusion REST/STRESS Imaging Protocol: Rest Tc-99m/Stress Tc-99m 1 day Resting Data Rest SPECT myocardial perfusion imaging was performed in supine position 60 minutes following the int ravenous injection of 9.8 mCi of Tc-99m Sestamibi. Time of rest injection: 07:51 Date: 02/24/2025 Time of rest imagin:51 Date: 02/24/2025 Administration Route: IV Administration Site: Left Hand Pharmacologic Stress Pharmacologic stress test was performed by injecting Regadenoson 0.4 mg IV push followed by the intra venous injection of 31.2 mCi of Tc-99m Sestamibi. Time of stress injection: 09:40 Date: 02/24/2025 Time of stress imagin:40 Date: 02/24/2025 Administration Route: IV Administration Site: Left Hand Gated Stress SPECT was performed 60 minutes after stress injection. The images were gated to evaluate regional wall motion and calculate left ventricular ejection fracti on. Stress only was performed in the Supine position. Nuclear Conclusion Nuclear Findings: negative for ischemia no ischemia normal perfusion lvef 47%
--- NOTE | 2025-02-24 14:29 | DVHPN2 ---
Consult Progress Note Date Seen: Feb 24, 2025 Subjective Review of Systems: CVS:Normal, RESPIRATORY:Normal, NEURO:Normal Other Systems: Denies any further cardiac symptoms Objective vital signs Vital Sign Date Time Temp Pulse Resp B/P (MAP) Pulse Ox O2 Delivery O2 Flow Rate FiO2 02/24/25 13:00 97.7 72 14 115/83 (94) 100 97.7 02/24/25 10:16 Room Air 02/24/25 10:16 0 21 Total Intake and Output 02/23/25 02/23/25 02/24/25 15:00 23:00 07:00 Intake Total 475 ml 1640 ml Balance 475 ml 1640 ml medications Current Medications Medications Dose Ordered Sig/Eugene Route Start Time Stop Time Status Last Admin Dose Admin Aspirin 81 mg DAILY PO 02/22/25 10:00 02/24/25 11:13 81 MG Atorvastatin Calcium 40 mg HS PO 02/21/25 22:00 02/23/25 21:09 40 MG Acetaminophen 650 mg Q6HP PRN PO 02/21/25 14:30 Ondansetron HCl 4 mg Q4HP PRN IV 02/21/25 14:30 Nitroglycerin 0.4 mg Q5MINP PRN SL 02/21/25 14:30 Morphine Sulfate 2 mg Q30M PRN IV 02/21/25 14:30 Furosemide 40 mg DAILY IV 02/22/25 10:00 02/24/25 11:14 40 MG Albuterol 2.5 mg Q4HPRN PRN NEB 02/21/25 15:00 02/24/25 10:14 2.5 MG Ipratropium [place] 0.5 mg Q4HPRN PRN NEB 02/21/25 15:00 02/24/25 10:14 0.5 MG Budesonide 0.5 mg BID NEB 02/21/25 22:00 02/24/25 10:14 0.5 MG Enoxaparin Sodium 40 mg DAILY SC 02/22/25 10:00 02/24/25 11:13 40 MG Ceftriaxone Sodium 50 ml @ 100 mls/hr DAILY@09 IV 02/23/25 09:00 02/24/25 11:13 100 MLS/HR Examination: LUNGS:Normal, CVS:Normal, NEURO:Normal laboratory and microbiology Laboratory Tests 02/23/25 10:50 Test 02/23/25 10:50 Range/Units Serum Glucose 82 74-106 mg/dL Problem List/Assessment/Plan Problem List/Assessment/Plan Chest pain/SOB rule out coronary artery disease +D-dimer, PE/DVT ruled out Transaminitis hx of PE on Eliquis Amphetamine and fentanyl abuse Obesity Plan/Recommendation (Dr. Darden ) * Transthoracic echocardiogram revealed LVEF 55% * Cardiolite stress test rule, negative for ischemia * Counseled on risk factor modifications: stimulant and opiate use contributing to cardiopulmonary symptoms There is no further cardiac work-up indicated at this time. Kindly call with any questions or concerns. Signing off. Thank you for allowing us to care for this patient. This medical document was created using an electronic medical record system with voice recognition software and computerized dictation system. Although this document has been carefully reviewed, there might still be some phonetic and typographical errors. Occasional wrong-word or ``sound-alike substitutions may have occurred due to the inherent limitations of voice recognition software. These areas are purely typographical due to imperfections of the software programs and do not reflect any compromise in the patient's medical care. Please read the chart carefully and recognize, using context, where these substitutions have occurred. Plan discussed with: Patient, Other Dietary Evaluation Review Recommendations by RD: Dietary education by RD Comments: 1) If patient remains NPO > 7 days, consider EN/TPN to meet at least 75% of estimated daily needs 2) Advance to cardiac diet when medically feasible 3) Refer to outpatient RD for weight management 4) Follow-up with cardiology 5) Follow-up with social group worker r/t polysubstance abuse 6) Continue to monitor I&O, labs, and skin integrity Expected Outcomes/Goals: 1) patient to receive nutritional support within 7 days of NPO status 2) labs to improve 3) diet to advance 4) gradual wt loss 5) f/u in 3-5 days Date of Service: Feb 24, 2025 Billing Provider: SALBADOR BARRON Cardiology Common Codes: [id number] HOSP CARE([facility] SALBADOR BARRON Feb 24, 2025 14:29
--- NOTE | 2025-02-24 14:33 | ECG ---
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
--- NOTE | 2025-02-24 16:04 | DVHDS2 ---
Discharge Summary Date of Admission Feb 21, 2025 at 14:17 Date of Discharge: Feb 24, 2025 Labs/Diagnostic Data: Laboratory Results Test 02/23/25 23:00 02/23/25 12:18 02/23/25 10:50 02/22/25 05:39 Urine Test Negative (Negative) Erythrocyte Sedimentation Rate 16 mm/hr (0-20) White Blood Count 7.6 10^3/uL (4.4-10.8) Red Blood Count 5.69 10^6/uL (4.0-5.20) Hemoglobin 11.5 g/dL (12.2-16.2) Hematocrit 37.2 % (36.0-46.0) Mean Corpuscular Volume 65.3 fL (80.0-100.0) Mean Corpuscular Hemoglobin 20.3 pg (28.0-32.0) Mean Corpuscular Hemoglobin Concent 31.0 g/dL (32.0-36.0) Red Cell Distribution Width 18.7 % (11.8-14.3) Platelet Count 261 10^3/uL (140-450) Mean Platelet Volume 8.5 fL (6.9-10.8) Neutrophils (%) (Auto) 65.0 % (37.0-80.0) Lymphocytes (%) (Auto) 24.9 % (10.0-50.0) Monocytes (%) (Auto) 7.5 % (0.0-12.0) Eosinophils (%) (Auto) 2.1 % (0.0-7.0) Basophils (%) (Auto) 0.5 % (0.0-2.0) Neutrophils # (Auto) 4.9 10 ^3/uL (1.6-8.6) Lymphocytes # (Auto) 1.9 10 ^3/uL (0.4-5.4) Monocytes # (Auto) 0.6 10 ^3/uL (0-1.3) Eosinophils # (Auto) 0.2 10 ^3/uL (0-0.8) Basophils # (Auto) 0 10 ^3/uL (0-0.2) Nucleated Red Blood Cells 0.3 % Sodium Level 135 mmol/L (136-145) Potassium Level 4.7 mmol/L (3.5-5.1) Chloride Level 102 mmol/L (98-107) Carbon Dioxide Level 25 mmol/L (20-31) Anion Gap 8 (5-15) Blood Urea Nitrogen 11 mg/dL (9-23) Creatinine 0.82 mg/dL (0.550-1.02) Glomerular Filtration Rate Calc 92 mL/min (>90) BUN/Creatinine Ratio 13.4 (10.0-20.0) Serum Glucose 82 mg/dL (74-106) Calcium Level 9.5 mg/dL (8.7-10.4) Total Bilirubin 0.3 mg/dL (0.2-1.0) Aspartate Amino Transferase (AST) 58 U/L (13-40) Alanine Aminotransferase (ALT) 50 U/L (7-40) Alkaline Phosphatase 113 U/L (46-116) C-Reactive Protein High Sensitivity 0.20 mg/dL (<1.0) Total Protein 8.1 g/dL (5.7-8.2) Albumin 4.2 g/dL (3.2-4.8) Magnesium Level 1.9 mg/dL (1.6-2.6) Troponin I High Sensitivity 5 ng/L (</=34) Triglycerides Level 71 mg/dL (< 150) Cholesterol Level 138 mg/dL (< 200) LDL Cholesterol 72 mg/dL (< 100) HDL Cholesterol 57 mg/dL (40-59) Test 02/21/25 10:39 02/21/25 09:50 Urine Color Yellow (Yellow) Urine Clarity Turbid (Clear) Urine pH 6.5 (5.0-9.0) Urine Specific [place] 1.024 (1.001-1.035) Urine Protein Trace (Negative) Urine Ketones Trace (Negative) Urine Blood Negative /uL (Negative) Urine Nitrite Negative (Negative) Urine Bilirubin Negative (Negative) Urine Urobilinogen 2 mg/dL (Negative) Urine Leukocyte Esterase Negative /uL (Negative) Urine RBC 6 /hpf (0 - 4) Urine Microscopic WBC 14 /HPF (0-5) Urine Squamous Epithelial Cells Mod /hpf (<5) Urine Bacteria None seen /hpf (None Seen) Urine Mucus Few (None Seen) Urine Glucose Normal mg/dL (Normal) Urine Opiates Screen Neg (NEGATIVE) Urine Fentanyl Screen Pos (NEGATIVE) Urine Barbiturates Screen Neg (NEGATIVE) Urine Phencyclidine Screen Neg (NEGATIVE) Urine Amphetamines Screen Pos (NEGATIVE) Urine Benzodiazepines Screen Neg (NEGATIVE) Urine Cocaine Screen Neg (NEGATIVE) Urine Cannabinoids Screen Neg (NEGATIVE) D-Dimer, Quantitative 3.42 mg/L FEU (0.0-0.49) Hemoglobin A1c 5.2 % A1C (<5.7) B-Type Natriuretic Peptide 16.50 pg/mL (0-100) Thyroid Stimulating Hormone (TSH) 0.57 uIU/mL (0.55-4.78) Free Thyroxine (T4) Calculated 1.52 ng/dL (0.89-1.76) Other Laboratory Tests 02/23/25 10:50 Brief Hx & Hospital Course: 39-year-old female with past medical history of PE on Eliquis, [place], valley fever, and cholecystectomy who presents to the ED with chest pain and shortness of breath. Patient reports that the pain initially started 2-3 months ago and has been intermittent but now worsened today. Patient reports that the pain is 8/10 stabbing like and intermittent. Patient also reports that the pain is relieved with aspirin. Patient also reports that she has been noncompliant with her Eliquis. She reported that she does not want to take medications for the rest of her life. 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 Patient also endorsed that she has a pulmonary referral but she never went to see a welder operator or her primary. Patient also endorses that she smokes 1 pack of cigarettes per day and quit using fentanyl and methamphetamine, is now on Suboxone. Patient also reports that she was prescribed Lasix, Eliquis, albuterol, and Symbicort. 02/24: Patient presented with chest pain, she has history of methamphetamine abuse. 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 Troponins are negative, echo shows 55%, Lexiscan is done negative for any reversible ischemia, showing EF 47% . Diagnosis: Chest pain, ACS ruled out, likely due to drug abuse (methamphetamine) Elevated D-dimer, ruled out PE Hypokalemia, resolved Tobacco use Meth use Fentanyl use Microcytic anemia RADHA due to VMN, likely History of PE on Eliquis History of [place] History of valley fever History of cholecystectomy Medication noncompliance Plan: -continue to avoid drugs -continue other home medications -follow up with PCP to review discharge Condition at Discharge: Fair Final Diagnosis/Problems List Chest pain, ACS ruled out, likely due to drug abuse (methamphetamine) Elevated D-dimer, ruled out PE Hypokalemia, resolved Tobacco use Meth use Fentanyl use Microcytic anemia RADHA due to VMN, likely History of PE on Eliquis History of [place] History of valley fever History of cholecystectomy Medication noncompliance Discharge Disposition: Home Discharge Statement: "Patient was advised to return to the ER or call 911 if any headaches, dizziness, shortness of breath, chest pain, abdominal pain, bleeding, fevers, or worsening of medical condition. Patient was counseled about treatment plan, medications, possible side effects, patientverbalized understanding. All questions were answered to the best of my ability. This discharge took greater then 30 minutes in planning, reviewing documentation, counseling the patient, and discussing with other team members." ASSESSMENT ASSESSMENT Assessment Date of Service: Feb 24, 2025 Billing Provider: PAUL ROLLE MD Common Visit Codes: 06189-HXN/OBS DISCH DAY >30min PAUL ROLLE MD Feb 24, 2025 16:04
[2025-02-24] MEDS ORDERED: APIX5TAB PO (16:57)
[2025-02-24] MEDS ORDERED: FURO40TA4 PO (16:57)
[2025-02-24] MEDS ORDERED: TRAZ-228 PO (16:57)
== END 2025-02-24 18:50 | disposition home or self-care (01) | DRG 776 ==
LOC: EDBD 09:33 → ER 09:33 → OVERFLOW 14:17 → EAST 16:23 → TELE-EAST 20:45
PROVIDERS: ADMIT Student in an Organized Health Care Education/Training Program; ATTEND Student in an Organized Health Care Education/Training Program
DX: F15.129 Other stimulant abuse with intoxication, unspecified (principal); N17.0 Acute kidney failure with tubular necrosis; K76.89 Other specified diseases of liver; D50.9 Iron deficiency anemia, unspecified; E66.9 Obesity, unspecified; E87.6 Hypokalemia; F17.210 Nicotine dependence, cigarettes, uncomplicated; K44.9 Diaphragmatic hernia without obstruction or gangrene; R74.01 Elevation of levels of liver transaminase levels; N39.0 Urinary tract infection, site not specified; I25.2 Old myocardial infarction; Z90.49 Acquired absence of other specified parts of digestive tract; Z86.711 Personal history of pulmonary embolism; Z79.01 Long term (current) use of anticoagulants; Z91.148 Patient's other noncompliance with medication regimen for other reason; Z83.3 Family history of diabetes mellitus; Z82.49 Family history of ischemic heart disease and other diseases of the circulatory system; Z80.3 Family history of malignant neoplasm of breast; Z80.41 Family history of malignant neoplasm of ovary; Z81.8 Family history of other mental and behavioral disorders; Z68.36 Body mass index [BMI] 36.0-36.9, adult; Y92.89 Other specified places as the place of occurrence of the external cause; J45.20 Mild intermittent asthma, uncomplicated
CPT/HCPCS: 36415; 71045; 71275; 76705; 78452; 80048; 80053; 80061; 80307; 81001; 81025; 83036; 83735; 83880; 84439; 84443; 84484; 85025; 85379; 85652; 86141; 87086; 93005; 93017; 93306; 93970; 94640; 97163; 99291; 99292; G0378